=== PATIENT | male | born 1990 | race Caucasian/White ===

== ENCOUNTER 2017-06-10 11:53 | Emergency (ER) | payer SELFPAY ==
[~2017-06-10] VITALS: Ht 177.8 cm; Wt 69.9 kg
[~2017-06-10 11:53] MED LIST: MOTRIN400 MG PO; PERCOCET 5/31 TABLET PO
[2017-06-10 15:00] VITALS: BP 137/65
== END 2017-06-10 15:01 | disposition home or self-care (01) ==
LOC: EME 11:53
DX: S06.0X0A Concussion without loss of consciousness, initial encounter (principal); S05.12XA Contusion of eyeball and orbital tissues, left eye, initial encounter; T14.8 Other injury of unspecified body region; X58.XXXA Exposure to other specified factors, initial encounter; F41.9 Anxiety disorder, unspecified; F17.200 Nicotine dependence, unspecified, uncomplicated
CPT/HCPCS: 70450; 70486; 72125; 99281; 99284; J2060